=== PATIENT | male | born 1995 | race Caucasian/White ===

== ENCOUNTER 2021-05-24 06:43 | Emergency (ER) | payer BC, OTHER ==
--- NOTE | 2021-05-24 07:04 | ED Physician Documentation ---
PD HPI ABD PAIN - Stated complaint Stated Complaint: ABD PX - Chief complaint Chief Complaint: Abd Pain - History obtained from History obtained from: Patient - History of Present Illness Timing - onset: How many days ago (2) Timing - duration: Days (2) Timing - details: Gradual onset, Still present Quality: Cramping, Aching, Pain Location: Suprapubic, Other (feeling of rectal fullness/discomfort.) Radiation: No: Chest, Lower back Improved by: BM (he had feeling of rectal fullness and thought constipated so tried dulcolax suppos, with small stool out. Some mucous as well. Improved some.). No: Eating Worsened by: No: Eating, Moving Associated symptoms: Nausea, Constipation (he states no BM for few days prior), Loss of appetite. No: Fever, Diarrhea, Dysuria (but feeling of urinary urgency/bladder fullness.) Similar symptoms before: No diagnosis (similar for part of a day last week but then improved.) Recently seen: Not recently seen Review of Systems Constitutional: denies: Fever, Chills, Myalgias Nose: denies: Rhinorrhea / runny nose, Congestion Throat: denies: Sore throat Respiratory: denies: Cough GI: reports: Abdominal Pain (lower abd/suprapubic), Nausea. denies: Vomiting, Diarrhea, Bloody / black stool : reports: Frequency. denies: Dysuria Skin: denies: Rash, Lesions Musculoskeletal: denies: Back pain PD PAST MEDICAL HISTORY - Past Medical History Past Medical History: No Cardiovascular: None Respiratory: None Endocrine/Autoimmune: None GI: None - Past Surgical History Past Surgical History: Yes General: Appendectomy - Present Medications Home Medications: Ambulatory Orders Medication Instructions Recorded Confirmed Ondansetron Odt [Zofran] 4 mg TL Q6H PRN #15 tablet 05/24/21 Oxycodone HCl/Acetaminophen 1 each PO Q6H PRN #12 tablet 05/24/21 [Percocet 5-325 mg Tablet] cephALEXin [Keflex] 500 mg PO TID 5 Days #15 cap 05/24/21 metroNIDAZOLE [Flagyl] 250 mg PO TID 5 Days #15 tablet 05/24/21 - Allergies Allergies/Adverse Reactions: Allergies Allergy/AdvReac Type Severity Reaction Status Date / Time No Known Drug Allergies Allergy Verified 05/24/21 06:58 - Social History Does the pt smoke?: No Smoking Status: Never smoker Does the pt drink ETOH?: No Does the pt have substance abuse?: No - Immunizations Immunizations are current?: No - POLST Patient has POLST: No PD ED PE NORMAL - Vitals Vital signs reviewed: Yes - General General: Alert and oriented X 3, No acute distress, Well developed/nourished - Neck Neck: Supple, no meningeal sign, No adenopathy - Cardiac Cardiac: RRR, No murmur - Respiratory Respiratory: Clear bilaterally - Abdomen Abdomen: Normal bowel sounds, Soft, Non distended, No organomegaly, Other (lower abd tender left more than right, and also suprapubic, without percussion nor rebound. Mild guarding. ) - Male Male : Deferred - Rectal Rectal: Other (minimal stool in vault. No masses/tenderness. ) - Back Back: No CVA TTP - Derm Derm: Normal color, Warm and dry - Neuro Neuro: Alert and oriented X 3, No motor deficit, Normal speech Results - Vitals Vitals: Vital Signs - 24 hr 05/24/21 05/24/21 06:45 08:54 Temperature 36.6 C Heart Rate 95 88 Respiratory 18 15 Rate Blood Pressure 155/103 H 147/87 H O2 Saturation 98 99 Oxygen O2 Source Room air - Labs Labs: Laboratory Tests 05/24/21 05/24/21 05/24/21 06:59 06:59 06:59 WBC 13.4 H RBC 5.43 Hgb 16.2 Hct 48.3 MCV 89.0 MCH 29.8 MCHC 33.5 RDW 12.4 Plt Count 285 MPV 9.2 Neut # (Auto) 9.1 H Lymph # (Auto) 2.7 [place] # (Auto) 1.3 H Eos # (Auto) 0.2 Baso # (Auto) 0.0 Absolute Nucleated RBC 0.00 Nucleated RBC % 0.0 Sodium 141 Potassium 3.9 Chloride 100 L Carbon Dioxide 29 Anion Gap 12.0 BUN 11 Creatinine 0.8 Estimated GFR (MDRD) 118 Glucose 114 H Calcium 9.8 Total Bilirubin 1.4 H AST 19 ALT 38 Alkaline Phosphatase 64 Total Protein 8.9 H Albumin 4.4 Globulin 4.5 H Albumin/Globulin Ratio 1.0 Lipase 172 H Urine Color YELLOW Urine Clarity CLEAR Urine pH 5.5 Ur Specific [place] >=1.030 H Urine Protein NEGATIVE Urine Glucose (UA) NEGATIVE Urine Ketones NEGATIVE Urine Occult Blood MODERATE H Urine Nitrite NEGATIVE Urine Bilirubin NEGATIVE Urine Urobilinogen 0.2 (NORMAL) Ur Leukocyte Esterase NEGATIVE Urine RBC 6-10 H Urine WBC 0-3 Ur Epithelial Cells RARE Transitional Ur Squamous Epith Cells FEW Squamous Urine Bacteria Few Urine Mucus Marked Strands Ur Microscopic Review INDICATED Urine Culture Comments NOT INDICATED - Rads (name of study) abd/pelvic CT Radiology: Prelim report reviewed (sigmoid diverticula with local inflammation. No perforation nor abscess. ), See rad report PD MEDICAL DECISION MAKING - ED course Complexity details: reviewed results (normal stool burden. Has diverticulitis findings on CT. ELevated WBCs. Presume infectious component at this point as well as inflammatory. ), considered differential, d/w patient Departure - Departure Disposition: 01 Home, Self Care Clinical Impression: Sigmoid diverticulitis Abdominal pain Qualifiers: Abdominal location: lower abdomen, unspecified Qualified Code(s): R10.30 - Lower abdominal pain, unspecified Condition: Stable Record reviewed to determine appropriate education?: Yes Instructions: ED Diverticulitis Prescriptions: metroNIDAZOLE [Flagyl] 250 mg PO TID 5 Days #15 tablet cephALEXin [Keflex] 500 mg PO TID 5 Days #15 cap Oxycodone HCl/Acetaminophen [Percocet 5-325 mg Tablet] 1 each PO Q6H PRN #12 tablet PRN Reason: pain Ondansetron Odt [Zofran] 4 mg TL Q6H PRN #15 tablet PRN Reason: Nausea / Vomiting Comments: You do not have excessive stool on your CT scan. Your symptoms seem to be coming from an inflammation and infection of the sigmoid colon which is in the lower abdomen and behind the bladder. This is diverticulitis appears localized and without any perforation or abscess. It can be treated with anti- inflammatories and antibiotics. Stay well-hydrated and regular food should be okay. Use a mild stool softener so you are do not get constipated from the pain medicines. You do not need to use any laxatives or suppositories. Cephalexin and metronidazole antibiotics 3 times a day for 5 days. Use an anti- inflammatory such as ibuprofen or naproxen 3 times a day as well. Take all of these with food so they do not bother your stomach. Ondansetron for nausea as needed. Add Tylenol every 4-6 hours if needed for pain or oxycodone if needed for worse pain. I would anticipate only needing this for the first few days with improvement in your symptoms over the next 2 to 3 days and resolution over 3 to 5 days. Recheck if not improving well in the next several days timeframe. Return if worse. I transmitted your prescriptions to [facility] pharmacy in [place]. I am prescribing a short course of narcotic pain medication for you. These are potentially dangerous and addictive medications that should be used carefully. These medications may constipate you. Take an [id number] stool softener such as docusate twice daily with plenty of water while taking these medications. If you go 24 hours without a bowel movement, take [id number] MiraLAX, per package instructions. Do not drink or drive while taking these medications. If you received narcotic or sedating medications while in the emergency department do not drive for 24 hours. Store this medication in a safe, secure place and out of reach of children. It is a violation of federal law to give or sell this medication to another person or to use in a manner other than prescribed. The ED will not refill narcotic prescriptions, including prescriptions lost or stolen. You can dispose of unwanted medications at the [facility]'s office or at several pharmacies such as [facility]. Forms: Activity restrictions Discharge Date/Time: 05/24/21 08:56
[2021-05-24 07:08] LABS: BASOPHILS % (AUTO) 0.2 %; EOSINOPHILS # (AUTO) 0.2 10^3/uL (0.0-0.7); EOSINOPHILS % (AUTO) 1.4 %; HCT - HEMATOCRIT 48.3 % (42.0-52.0); HGB - HEMOGLOBIN 16.2 g/dL (14.0-18.0); LYMPHOCYTES # (AUTO) 2.7 10^3/uL (1.5-3.5); MEAN CORPUSCULAR HEMOGLOBIN 29.8 pg (27.0-31.0); MEAN CORPUSCULAR HGB CONC 33.5 g/dL (32.0-36.0); MEAN PLATELET VOLUME 9.2 fL (7.4-11.4); MONOCYTES # (AUTO) 1.3 10^3/uL (0.0-1.0); NEUTROPHILS # (AUTO) 9.1 10^3/uL (1.5-6.6); NEUTROPHILS % (AUTO) 68.1 %; PLT - PLATELET COUNT 285 10^3/uL (130-450); RED BLOOD COUNT 5.43 10^6/uL (4.70-6.10); RED CELL DISTRIBUTION WIDTH 12.4 % (12.0-15.0); WHITE BLOOD COUNT 13.4 x10^3/uL (4.8-10.8)
[2021-05-24 07:09] LABS: BILIRUBIN,URINE NEGATIVE (NEGATIVE); GLUCOSE, URINE (UA) NEGATIVE (NEGATIVE); KETONES,URINE (UA) NEGATIVE (NEGATIVE); LEUKOCYTE ESTERASE, URINE NEGATIVE (NEGATIVE); NITRITE,URINE NEGATIVE (NEGATIVE); OCCULT BLOOD,URINE MODERATE (NEGATIVE); PH,URINE 5.5 PH (5.0-7.5); PROTEIN,URINE NEGATIVE (NEGATIVE); UROBILINOGEN,URINE 0.2 (NORMAL) E.U./dL (NORMAL)
[2021-05-24 07:15] LABS: ALBUMIN 4.4 g/dL (3.2-5.5); BILIRUBIN,TOTAL 1.4 mg/dL (0.2-1.0); CALCIUM 9.8 mg/dL (8.5-10.3); CREATININE 0.8 mg/dL (0.6-1.2); POTASSIUM 3.9 mmol/L (3.5-5.0); TOTAL PROTEIN 8.9 g/dL (6.7-8.2)
[2021-05-24 07:16] LABS: CLARITY,URINE CLEAR (CLEAR)
[2021-05-24 07:23] LABS: BACTERIA,URINE Few /HPF (None Seen); EPITHELIAL CELLS,UR RARE Transitional /HPF (<= Few); MUCUS,URINE Marked Strands; SQUAMOUS EPITHELIAL CELL,UR FEW Squamous (<= Few); WBC,URINE 0-3 /HPF (0-3)
[2021-05-24] MEDS ORDERED: KETOROLAC 30 MG/ML VIAL IVP STA (07:27)
[2021-05-24] MEDS ORDERED: ONDANSETRON 4 MG/2 ML VIAL IVP STA (07:27)
[2021-05-24] MEDS ORDERED: SODIUM CHLORIDE 0.9% 1,000 ML IV STA (07:27)
[2021-05-24] MEDS ORDERED: IOVERSOL 320 100 ML VIAL IVP ONE ×2 (07:37→18:01)
--- NOTE | 2021-05-24 08:06 | CT Report ---
PROCEDURE: Abdomen/Pelvis W INDICATIONS: lower abd pain for 2 days CONTRAST: IV CONTRAST: Optiray 320 ml: 100 PO CONTRAST: *NO PO CONTRAST TECHNIQUE: After the administration of IV contrast, 5 mm thick sections acquired from the diaphragms to the symp hysis. 5 mm thick coronal and sagittal reformats were acquired. For radiation dose reduction, the f ollowing was used: automated exposure control, adjustment of mA and/or kV according to patient size. COMPARISON: None. FINDINGS: Image quality: Excellent. ABDOMEN: Lung bases: Lung bases are clear. Heart size is normal. Solid organs: Liver and spleen are normal in size and enhancement. An accessory splenule is inciden tally noted along the hilum of the primary spleen. Gallbladder wall does not appear thickened. B iliary system is non dilated. Pancreas enhances normally. No adrenal nodules. Kidneys demonstrate normal size and enhancement, without hydronephrosis. Peritoneum and bowel: Focal wall thickening can be seen involving the sigmoid colon, with mild surro unding inflammatory change. No abscess formation can be seen. No significant free fluid is seen. No f ree air is seen. Diverticula formation can be seen within this region. Bowel loops otherwise demonstrate normal wall thickness and caliber. Appendectomy change can be seen . Nodes and vessels: No retroperitoneal or mesenteric adenopathy by size criteria. Aorta and inferior vena cava are normal in size. Miscellaneous: A mild fat-containing periumbilical hernia is seen. PELVIS: Genitourinary: Bladder wall thickness is normal. Miscellaneous: No inguinal hernias or adenopathy. Bones: No suspicious bony lesions. No vertebral body compression fractures. IMPRESSION: Sigmoid diverticulitis, without findings of perforation or abscess. Incidental note is made of: Accessory splenule Fat-containing periumbilical hernia Appendectomy Reviewed by: Diogenes Thompson MD on 05/24/2021 7:04 AM [facility] Approved by: Diogenes Thompson MD on 05/24/2021 7:04 AM [facility] Station ID: [id number]
[2021-05-24] MEDS ORDERED: metroNIDAZOLE 250 MG TABLET PO STA (08:15)
[2021-05-24] MEDS ORDERED: cefTRIAXone 1 GM VIAL IVP STA (08:15)
[2021-05-24] MEDS ORDERED: oxyCODONE/ACET 5/325 Prepack 4 PO STA (08:26)
[2021-05-24 08:56] VITALS: BP 147/87
== END 2021-05-24 08:56 | disposition home or self-care (01) ==
LOC: ED 06:43
DX: K57.32 Diverticulitis of large intestine without perforation or abscess without bleeding (principal); K42.9 Umbilical hernia without obstruction or gangrene
CPT/HCPCS: 36415; 74177; 80053; 81001; 83690; 85025; 96374; 96375; 99284; A9270; Q9967; 81003; 87086